=== PATIENT | male | born 1945 | race Caucasian/White ===

== ENCOUNTER 2017-08-07 08:52 | Inpatient (IN) | payer OTHER, MEDICARE ==
[~2017-08-07] VITALS: Ht 175.3 cm; Wt 79.9 kg
[2017-08-07] VITALS (8 sets, daily range): BP systolic 127–164; BP diastolic 57–84; PULSE 71–95; RESP 17–20; TEMP 97.6–98.2; O2SAT 94–100
[~2017-08-07 08:52] MED LIST: ASPI-183 PO; ISOS10TA3 PO; METF500T PO; METO25TA3 PO; MIRT30TA PO; NIAC500T18 PO; OMEP20TA93 PO; PRAZ5CAP PO; SIMV20TA PO
[2017-08-07] MEDS ORDERED: ATOR20TA15 PO (09:07)
[2017-08-07] MEDS ORDERED: CYCL5TAB PO (09:07)
[2017-08-07] MEDS ORDERED: ONDANSETRON HCL 4 MG/2 ML VIAL IV PUSH ONE ×2 (09:15→12:00)
[2017-08-07] MEDS ORDERED: SODIUM CHLOR 0.9% 1000 ML INJ 1,000 ML IV SCH (09:15)
[2017-08-07] MEDS ORDERED: HYDROmorphone HCL PF 2 MG/ML VIAL IV PUSH ONE ×2 (09:15→12:00)
--- NOTE | 2017-08-07 09:15 | PD ---
HPI Chief Complaint: Abdominal Pain Time Seen by Provider: 09:00 Travel History International Travel<30 days: No Contact w/Intl Traveler<30days: No Traveled to known affect area: No History of Present Illness HPI This 71-year-old male is complaining of abdominal pain. He says the pain started around 4:00 this morning. It is fairly persistent but it does get worse at times. There is been no vomiting but has had periods of nausea. He had surgery in 1999 for a perforated colon. He believes it might of been perforated due to diverticulitis. He had a colostomy done at the time and it has been reconnected. Since then he says he gets a bowel obstruction about every 2 years. The last time was in March 2016 he was admitted here and managed nonoperatively. He has done well since then. He had a small bowel movement about an hour ago. He says the pain is having now is similar to the pain is had before with bowel obstructions PFSH Past Medical History Arthritis: Yes Anxiety: Yes Depression: Yes Cancer: Yes (skin ) Cardiac Catheterization: Yes Cardiovascular Problems: Yes High Cholesterol: Yes Chest Pain: Yes Coronary Artery Disease: Yes Diabetes: Yes Patient Takes Glucophage: Yes Gastrointestinal Disorders: Yes (bowel perforation, colectomy, reversed colostomy) GERD: Yes Genitourinary: Yes (bph) Hypertension: Yes Insomnia: Yes Musculoskeletal: Yes Neurologic: Yes Psychiatric: Yes (ptsd) Reproductive: No Respiratory: No Myocardial Infarction: Yes Triglycerides - High: Yes ?: Not Past Surgical History Abdominal Surgery: Yes (colectomy/colostomy and rev) Appendectomy: Yes Coronary Stent: Yes Other Surgery: Yes Social History Alcohol Use: No Tobacco Use: Yes Substance Use: No Allergies-Medications (Allergen,Severity, Reaction): Coded Allergies: diatrizoate meglumine (Unverified Allergy, Severe, paralysis, 08/07/17) gadobenic acid (Unverified Allergy, Severe, paralysis, 08/07/17) gadodiamide (Unverified Allergy, Severe, paralysis, 08/07/17) gadoteridol (Unverified Allergy, Severe, paralysis, 08/07/17) iodixanol (Unverified Allergy, Severe, paralysis, 08/07/17) iohexol (Unverified Allergy, Severe, paralysis, 08/07/17) shellfish derived (Verified Allergy, Unknown, 08/07/17) Reported Meds & Prescriptions Reported Meds & Active Scripts Active Reported Flexeril (Cyclobenzaprine HCl) 5 Mg Tab 5 Mg PO BID Atorvastatin (Atorvastatin Calcium) 20 Mg Tab 20 Mg PO HS Mirtazapine 30 Mg Tab 30 Mg PO HS PRN Prazosin (Prazosin HCl) 5 Mg Cap 10 Mg PO HS Isosorbide Mononitrate 10 Mg Tab 30 Mg PO DAILY Take 2 doses 7 hours apart. Omeprazole 20 Mg Tab 20 Mg PO DAILY Metformin (Metformin HCl) 500 Mg Tab 500 Mg PO BIDPC With meals Metoprolol Tartrate 25 Mg Tab 25 Mg PO BID Review of Systems Except as stated in HPI: all other systems reviewed are Neg General / Constitutional: No: Fever, Chills Eyes: No: Diploplia, Blurred Vision HENT: No: Headaches, Vertigo Cardiovascular: No: Chest Pain or Discomfort, Palpitations Respiratory: No: Cough, Shortness of Breath Gastrointestinal: Positive: Nausea, Abdominal Pain Genitourinary: No: Frequency Musculoskeletal: No: Myalgias Skin: No Rash Neurologic: No: Weakness, Dizziness Endocrine: No: Heat Intolerance, Cold Intolerance Hematologic/Lymphatic: No: Easy Bruising Physical Exam Narrative GENERAL: Well-developed male SKIN: Focused skin assessment warm/dry. HEAD: Atraumatic. Normocephalic. EYES: Pupils equal and round. No scleral icterus. No injection or drainage. ENT: No nasal bleeding or discharge. Mucous membranes pink and moist. NECK: Trachea midline. No JVD. CARDIOVASCULAR: Regular rate and rhythm. No murmur appreciated. RESPIRATORY: No accessory muscle use. Clear to auscultation. Breath sounds equal bilaterally. GASTROINTESTINAL: Abdomen soft, mild distention, somewhat diffuse tenderness bowel sounds diminished. Hepatic and splenic margins not palpable. MUSCULOSKELETAL: No obvious deformities. No clubbing. No cyanosis. No edema. NEUROLOGICAL: Awake and alert. No obvious cranial nerve deficits. Motor grossly within normal limits. Normal speech. PSYCHIATRIC: Appropriate mood and affect; insight and judgment normal. Data Data Last Documented VS Vital Signs Date Time Temp Pulse Resp B/P (MAP) Pulse Ox O2 Delivery O2 Flow Rate FiO2 08/07/17 11:47 71 20 140/67 (91) 100 08/07/17 08:55 97.6 Orders Orders Complete Blood Count With Diff (08/07/17 09:08) Comprehensive Metabolic Panel (08/07/17 09:08) Prothrombin Time / Inr (Pt) (08/07/17 09:08) Act Partial Throm Time (Ptt) (08/07/17 09:08) Lipase (08/07/17 09:08) Urinalysis - C+S If Indicated (08/07/17 09:08) Sodium Chlor 0.9% 1000 Ml Inj (Ns 1000 M (08/07/17 09:15) Ondansetron Inj (Zofran Inj) (08/07/17 09:15) Hydromorphone Pf Inj (Dilaudid Pf Inj) (08/07/17 09:15) Ct Abd/Pel W/O Iv Contrast (08/07/17 09:40) Hydromorphone Pf Inj (Dilaudid Pf Inj) (08/07/17 12:00) Ondansetron Inj (Zofran Inj) (08/07/17 12:00) Place Ng Tube To Low Intermit (08/07/17 11:51) Ng Gastric Tube Insert/Monitor (08/07/17 11:51) Ns + Kcl 40 Meq Inj (Ns + Kcl 40 Meq Inj (08/07/17 12:00) Labs Laboratory Tests Test 08/07/17 09:20 White Blood Count 9.7 TH/MM3 Red Blood Count 4.62 MIL/MM3 Hemoglobin 13.9 GM/DL Hematocrit 40.8 % Mean Corpuscular Volume 88.2 FL Mean Corpuscular Hemoglobin 30.0 PG Mean Corpuscular Hemoglobin Concent 34.0 % Red Cell Distribution Width 13.6 % Platelet Count 181 TH/MM3 Mean Platelet Volume 8.4 FL Neutrophils (%) (Auto) 87.7 % Lymphocytes (%) (Auto) 8.6 % Monocytes (%) (Auto) 2.9 % Eosinophils (%) (Auto) 0.4 % Basophils (%) (Auto) 0.4 % Neutrophils # (Auto) 10.6 TH/MM3 Lymphocytes # (Auto) 1.0 TH/MM3 Monocytes # (Auto) 0.3 TH/MM3 Eosinophils # (Auto) 0.0 TH/MM3 Basophils # (Auto) 0.0 TH/MM3 CBC Comment AUTO DIFF Differential Comment AUTO DIFF CONFIRMED Platelet Estimate NORMAL Platelet Morphology Comment NORMAL Prothrombin Time 10.4 SEC Prothromb Time International Ratio 1.0 RATIO Activated Partial Thromboplast Time 25.9 SEC Blood Urea Nitrogen 16 MG/DL Creatinine 0.90 MG/DL Random Glucose 181 MG/DL Total Protein 7.2 GM/DL Albumin 3.8 GM/DL Calcium Level 9.2 MG/DL Alkaline Phosphatase 86 U/L Aspartate Amino Transf (AST/SGOT) 19 U/L Alanine Aminotransferase (ALT/SGPT) 17 U/L Total Bilirubin 0.5 MG/DL Sodium Level 139 MEQ/L Potassium Level 3.4 MEQ/L Chloride Level 103 MEQ/L Carbon Dioxide Level 28.4 MEQ/L Anion Gap 8 MEQ/L Estimat Glomerular Filtration Rate 83 ML/MIN Lipase 108 U/L [facility] Medical Decision Making Medical Screen Exam Complete: Yes Emergency Medical Condition: Yes Medical Record Reviewed: Yes Differential Diagnosis Differential diagnosis includes small bowel obstruction, nonspecific abdominal pain, diverticulitis Narrative Course Skin suggests partial closed loop types small bowel obstruction it is noted that the scan is similar to previous scans. Case discussed with Dr. Red. The patient will be admitted to medical service Diagnosis Primary Impression: Small bowel obstruction due to adhesions Benjamín Rodriguez MD Aug 07, 2017 09:15
[2017-08-07 09:41] LABS: AUTOMATED NEUTROPHIL # 10.6 TH/MM3 (1.8-7.7); BASOPHIL % 0.4 % (0.0-2.0); EOSINOPHIL % 0.4 % (0.0-4.0); HEMATOCRIT 40.8 % (39.0-51.0); HEMOGLOBIN 13.9 GM/DL (13.0-17.0); LYMPH % 8.6 % (9.0-44.0); MEAN CELL VOLUME 88.2 FL (80.0-100.0); MEAN PLATELET VOLUME 8.4 FL (7.0-11.0); MONO % 2.9 % (0.0-8.0); MONOCYTE # 0.3 TH/MM3 (0-0.9); NEUT % 87.7 % (16.0-70.0); RED BLOOD COUNT 4.62 MIL/MM3 (4.50-5.90); RED CELL DISTRIBUTION WIDTH 13.6 % (11.6-17.2)
[2017-08-07 09:44] LABS: PROTHROMBIN TIME - PATIENT 10.4 SEC (9.8-11.6)
[2017-08-07 09:56] LABS: BICARBONATE 28.4 MEQ/L (21.0-32.0); CALCIUM 9.2 MG/DL (8.5-10.1)
[2017-08-07 09:57] LABS: BLOOD UREA NITROGEN 16 MG/DL (7-18)
[2017-08-07 09:58] LABS: CHLORIDE 103 MEQ/L (98-107); SODIUM (NA) 139 MEQ/L (136-145)
[2017-08-07 09:59] LABS: ALBUMIN 3.8 GM/DL (3.4-5.0); GLUCOSE,RANDOM 181 MG/DL (74-106)
[2017-08-07 10:01] LABS: ALT (GPT) 17 U/L (12-78); AST (GOT) 19 U/L (15-37); GLOMERULAR FILTRATION RATE 83 ML/MIN (>89)
[2017-08-07 10:02] LABS: TOTAL PROTEIN 7.2 GM/DL (6.4-8.2)
[2017-08-07 10:04] LABS: ALKALINE PHOSPHATASE 86 U/L (45-117)
[2017-08-07 10:06] LABS: TOTAL BILIRUBIN ADULT 0.5 MG/DL (0.2-1.0)
[2017-08-07 10:39] LABS: WHITE BLOOD COUNT 9.7 TH/MM3 (4.0-11.0)
[2017-08-07 10:41] LABS: PLATELET COUNT 181 TH/MM3 (150-450)
--- NOTE | 2017-08-07 11:43 | RADRPT ---
EXAM DATE/TIME: 08/07/2017 11:05 [facility] COMPARISON: CT ABDOMEN & PELVIS W/O CONTRAST, April 12, 2016, 1:19. INDICATIONS : Abdomen pain,history of bowel obstruction ORAL CONTRAST: No oral contrast ingested. RADIATION DOSE: 6.91 CTDIvol (mGy) MEDICAL HISTORY : Cardiovascular disease. Arthritis. Hypertension.Diabetes,diverticulitis SURGICAL HISTORY : Coronary artery stent. Appendectomy.Colon resection. ENCOUNTER: Initial ACUITY: 1 day PAIN SCALE: 2/10 LOCATION: Abdomen TECHNIQUE: Volumetric scanning of the abdomen and pelvis was performed. Using automated exposure control and ad justment of the mA and/or kV according to patient size, radiation dose was kept as low as reasonably achievable to obtain optimal diagnostic quality images. DICOM format image data is available electro nically for review and comparison. FINDINGS: LOWER LUNGS: Mild atelectasis in the posterior lung bases. LIVER: Homogeneous density without lesion. There is no dilation of the biliary tree. No calcified gallston es. SPLEEN: Normal size without lesion. PANCREAS: Within normal limits. KIDNEYS: Normal in size and shape. There is no mass, stone, or hydronephrosis. ADRENAL GLANDS: Within normal limits. VASCULAR: There is no aortic aneurysm. BOWEL/MESENTERY: Previous colon surgery with anastomosis in the sigmoid region, configuration unchanged. Some residual diverticula. There are mildly-moderately dilated fluid-filled small bowel loops in the central and l eft abdomen. There does appear to be retraction of the mesentery toward a focus in the central abdome n which may be a site of adhesion. The appearance suggests at least a partial closed-loop type obstru ctive process, however the appearance is fairly similar to the prior scan. The distal small bowel and colon are decompressed. ABDOMINAL WALL: Stable changes post previous midline incision with small hernia defects. RETROPERITONEUM: There is no lymphadenopathy. BLADDER: No wall thickening or mass. REPRODUCTIVE: Central prostatic calcification. No evidence of pelvic mass or free fluid INGUINAL: There is no lymphadenopathy or hernia. MUSCULOSKELETAL: Within normal limits for patient age. CONCLUSION: Scan appearance suggests at least a partial closed-loop type small bowel obstruction likely related t o adhesions. See above discussion. Dorian Phan MD on August 07, 2017 at 11:35 Board Certified Radiologist. This report was verified electronically.
[2017-08-07] MEDS: NS + KCL 40 MEQ INJ 1,000 ML IV SCH ×2 (12:27→21:07)
[2017-08-07] MEDS ORDERED: NALOXONE HCL 0.4 MG/ML AMP IV PUSH PRN (12:30)
[2017-08-07] MEDS: SODIUM CHLOR 0.9% 1000 ML INJ 1,000 ML IV SCH ×2 (14:53→21:07)
[2017-08-07] MEDS: KETOROLAC TROMETHAMINE 60 MG/2 ML (IM) VIAL IM PRN ×2 (14:53→21:08)
[2017-08-07] MEDS ORDERED: DEXTROSE 50% IN WATER 50 ML VIAL(D50) IV PUSH PRN (16:15)
[2017-08-07] MEDS ORDERED: GLUCAGON 1 MG/ML VIAL OTHER PRN (16:15)
--- NOTE | 2017-08-07 16:21 | HHI.HP ---
[facility] Service [facility] Primary Care Physician [facility] Admission Diagnosis SMALL BOWEL OBSTRUCTION Diagnoses: Chief Complaint: Abdominal pain Travel History International Travel<30 Days: No Contact w/Intl Traveler <30 Da: No Traveled to Known Affected Are: No History of Present Illness This patient is a very pleasant 71-year-old gentleman with a history of multiple intestinal surgeries who came to the hospital and body of acute onset of severe abdominal pain which was previously experienced during a diagnosis of bowel obstruction. He has some nausea with no kendall vomiting. He says for the last 18 years he has had intermittent abdominal discomfort. 18 years ago he had perforated intestinal and that with colectomy and colostomy which has since been reversed. He reports no change in bowel habits or no change in diet prior to the acute change in pain. Pain has been relieved with IV of the abdomen which does show partial bowel obstruction Review of Systems Endocrine: DENIES: Heat/cold intolerance, Polydipsia, Polyuria, Polyphagia Eyes: DENIES: Blurred vision, Diplopia, Eye inflammation, Eye pain, Vision loss , Photosensitivity, Double Vision Ears, nose, mouth, throat: DENIES: Tinnitus, Hearing loss, Vertigo, Nasal discharge, Oral lesions, Throat pain, Hoarseness, Ear Pain, Running Nose, Epistaxis, Sinus Pain, Toothache, Odynophagia Respiratory: DENIES: Apneas, Cough, Snoring, Wheezing, Hemoptysis, Sputum production, Shortness of breath Cardiovascular: DENIES: Chest pain, Palpitations, Syncope, Dyspnea on Exertion , PND, Lower Extremity Edema, Orthopnea, Claudication Gastrointestinal: COMPLAINS OF: Abdominal pain, Nausea, Vomiting, DENIES: Black stools, Bloody stools, Constipation, Diarrhea, Difficulty Swallowing, Anorexia Genitourinary: DENIES: Sexual dysfunction, Urinary frequency, Urinary incontinence, Urgency, Hematuria, Dysuria, Nocturia, Penile Discharge, Testicular Pain, Testicular Swelling Musculoskeletal: DENIES: Joint pain, Muscle aches, Stiffness, Joint Swelling, Back pain, Neck pain Integumentary: DENIES: Abnormal pigmentation, Nail changes, Pruritus, Rash Hematologic/lymphatic: DENIES: Bruising, Lymphadenopathy Immunologic/allergic: DENIES: Eczema, Urticaria Neurologic: DENIES: Abnormal gait, Headache, Localized weakness, Paresthesias, Seizures, Speech Problems, Tremor, Poor Balance Psychiatric: DENIES: Anxiety, Confusion, Mood changes, Depression, Hallucinations, Agitation, Suicidal Ideation, Homicidal Ideation, Delusions Except as stated in HPI: all other systems reviewed are Neg Past Family Social History Past Medical History Diabetes Hypertension Coronary artery disease Hyperlipidemia Chronic pain BPH Past Surgical History Appendectomy Cholecystectomy Cardiac stent 2 Colectomy with reversal of colostomy Reported Medications Reviewed in the EMR Allergies: Coded Allergies: diatrizoate meglumine (Unverified Allergy, Severe, paralysis, 08/07/17) gadobenic acid (Unverified Allergy, Severe, paralysis, 08/07/17) gadodiamide (Unverified Allergy, Severe, paralysis, 08/07/17) gadoteridol (Unverified Allergy, Severe, paralysis, 08/07/17) iodixanol (Unverified Allergy, Severe, paralysis, 08/07/17) iohexol (Unverified Allergy, Severe, paralysis, 08/07/17) shellfish derived (Verified Allergy, Unknown, 08/07/17) Active Ordered Medications Reviewed in the EMR Family History Father and mother both in her 70s from unknown, Social History Patient is quite transient and drives his car around visiting friends and family He makes his home in [place] however He smokes a half pack a day for the last 50 years [employer] Denies alcohol Physical Exam Vital Signs Vital Signs Date Time Temp Pulse Resp B/P (MAP) Pulse Ox O2 Delivery O2 Flow Rate FiO2 08/07/17 15:53 18 08/07/17 15:00 98.2 80 20 144/74 (97) 100 08/07/17 14:06 08/07/17 13:22 84 20 131/57 (81) 98 Nasal Cannula 2.00 08/07/17 12:29 90 20 131/74 (93) 98 08/07/17 11:47 71 20 140/67 (91) 100 08/07/17 10:27 85 20 127/66 (86) 96 08/07/17 09:21 82 20 143/67 (92) 94 08/07/17 08:55 97.6 95 18 164/84 (110) 97 Physical Exam GENERAL: This is a well-nourished, well-developed patient, feels ill with NG tube with quite a large amount of output SKIN: No rashes, ecchymoses or lesions. Cool and dry. HEAD: Atraumatic. Normocephalic. No temporal or scalp tenderness. EYES: Pupils equal round and reactive. Extraocular motions intact. No scleral icterus. No injection or drainage. ENT: Nose without bleeding, purulent drainage or septal hematoma. Throat without erythema, tonsillar hypertrophy or exudate. Uvula midline. Airway patent. NECK: Trachea midline. No JVD or lymphadenopathy. Supple, nontender, no meningeal signs. CARDIOVASCULAR: Regular rate and rhythm without murmurs, gallops, or rubs. RESPIRATORY: Clear to auscultation. Breath sounds equal bilaterally. No wheezes , rales, or rhonchi. GASTROINTESTINAL: Abdomen is distended, hypoactive but nontender MUSCULOSKELETAL: Extremities without clubbing, cyanosis, or edema. No joint tenderness, effusion, or edema noted. No calf tenderness. Negative Homans sign bilaterally. NEUROLOGICAL: Awake and alert. Cranial nerves II through XII intact. Motor and sensory grossly within normal limits. Five out of 5 muscle strength in all muscle groups. Normal speech. Laboratory Laboratory Tests Test 08/07/17 09:20 White Blood Count 9.7 Red Blood Count 4.62 Hemoglobin 13.9 Hematocrit 40.8 Mean Corpuscular Volume 88.2 Mean Corpuscular Hemoglobin 30.0 Mean Corpuscular Hemoglobin Concent 34.0 Red Cell Distribution Width 13.6 Platelet Count 181 Mean Platelet Volume 8.4 Neutrophils (%) (Auto) 87.7 Lymphocytes (%) (Auto) 8.6 Monocytes (%) (Auto) 2.9 Eosinophils (%) (Auto) 0.4 Basophils (%) (Auto) 0.4 Neutrophils # (Auto) 10.6 Lymphocytes # (Auto) 1.0 Monocytes # (Auto) 0.3 Eosinophils # (Auto) 0.0 Basophils # (Auto) 0.0 CBC Comment AUTO DIFF Differential Comment AUTO DIFF CONFIRMED Platelet Estimate NORMAL Platelet Morphology Comment NORMAL Prothrombin Time 10.4 Prothromb Time International Ratio 1.0 Activated Partial Thromboplast Time 25.9 Blood Urea Nitrogen 16 Creatinine 0.90 Random Glucose 181 Total Protein 7.2 Albumin 3.8 Calcium Level 9.2 Alkaline Phosphatase 86 Aspartate Amino Transf (AST/SGOT) 19 Alanine Aminotransferase (ALT/SGPT) 17 Total Bilirubin 0.5 Sodium Level 139 Potassium Level 3.4 Chloride Level 103 Carbon Dioxide Level 28.4 Anion Gap 8 Estimat Glomerular Filtration Rate 83 Lipase 108 Result Diagram: 08/07/1791908/07/17919 Imaging Last Impressions Abdomen/Pelvis CT 08/07/1740 Signed Impressions: Service Date/Time: Monday, August 07, 2017 11:05 - CONCLUSION: Scan appearance suggests at least a partial closed-loop type small bowel obstruction likely related to adhesions. See above discussion. MD Lalo Araujo VTE Risk Assessment Caprini VTE Risk Assessment: Mod/High Risk (score >= 2) VTE Pharm Contraindication: Documented Caprini Risk Assessment Model Point Value = 1 Point Value = 2 Point Value = 3 Point Value = 5 Age 41-60 Minor surgery BMI > 25 kg/m2 Swollen legs Varicose veins or History of unexplained or recurrent spontaneous Oral contraceptives or hormone replacement Sepsis (< 1 month) Serious lung disease, including pneumonia (< 1 month) Abnormal pulmonary function Acute myocardial infarction Congestive heart failure (< 1 month) History of inflammatory bowel disease Medical patient at bed rest Age 61-74 Arthroscopic surgery Major open surgery (> 45 min) Laparoscopic surgery (> 45 min) Malignancy Confined to bed (> 72 hours) Immobilizing plaster cast Central venous access Age >= 75 History of VTE Family history of VTE Factor V Leiden Prothrombin [id number] Lupus anticoagulant Anticardiolipin antibodies Elevated serum homocysteine Heparin-induced thrombocytopenia Other congenital or acquired thrombophilia Stroke (< 1 month) Elective arthroplasty Hip, pelvis, or leg fracture Acute spinal cord injury (< 1 month) Prophylaxis Regimen Total Risk Factor Score Risk Level Prophylaxis Regimen 0-1 Low Early ambulation 2 Moderate Order ONE of the following: *Sequential Compression Device (SCD) *Heparin 5000 units SQ BID 3-4 Higher Order ONE of the following medications: *Heparin 5000 units SQ TID *Enoxaparin/Lovenox 40 mg SQ daily (WT < 150 kg, CrCl > 30 mL/min) *Enoxaparin/Lovenox 30 mg SQ daily (WT < 150 kg, CrCl > 10-29 mL/min) *Enoxaparin/Lovenox 30 mg SQ BID (WT < 150 kg, CrCl > 30 mL/min) AND/OR *Sequential Compression Device (SCD) 5 or more Highest Order ONE of the following medications: *Heparin 5000 units SQ TID (Preferred with Epidurals) *Enoxaparin/Lovenox 40 mg SQ daily (WT < 150 kg, CrCl > 30 mL/min) *Enoxaparin/Lovenox 30 mg SQ daily (WT < 150 kg, CrCl > 10-29 mL/min) *Enoxaparin/Lovenox 30 mg SQ BID (WT < 150 kg, CrCl > 30 mL/min) AND *Sequential Compression Device (SCD) Assessment and Plan Problem List: (1) SBO (small bowel obstruction) ICD Code: K56.609 - Unspecified intestinal obstruction, unspecified as to partial versus complete obstruction Plan: Patient with recurrent small bowel obstruction over the last 8 years Continue with IV fluids, bowel rest/n.p.o. status Pain medication and antiemetics as needed General surgery consult pending (2) DM2 (diabetes mellitus, type 2) ICD Code: E11.9 - Type 2 diabetes mellitus without complications Plan: Patient currently n.p.o. Continue IV hydration and follow as needed for hypoglycemia (3) CAD (coronary artery disease) ICD Code: I25.10 - Atherosclerotic heart disease of [place] coronary artery without angina pectoris Plan: Stable at this time, patient will resume home medications when bowel improves enough to tolerate diet Code Status full code Discussed Condition With patient, [facility]ENCHO Physician Certification 2 Midnight Certification Type: Admission for Inpatient Services Order for Inpatient Services The services are ordered in accordance with Medicare regulations or non- Medicare payer requirements, as applicable. In the case of services not specified as inpatient-only, they are appropriately provided as inpatient services in accordance with the 2-midnight benchmark. Estimated LOS (days): 3 3 days is the estimated time the patient will need to remain in the hospital, assuming treatment plan goals are met and no additional complications. Post-Hospital Plan: Ann Simeon MD Aug 07, 2017 16:21
[2017-08-07] MEDS: INSULIN ASPART SUPPLEMENTAL SCALE SQ SCH ×2 (17:00→21:00)
[2017-08-07] MEDS: PANTOPRAZOLE SODIUM 40 MG VIAL IV PUSH SCH (17:06)
[2017-08-07] MEDS: SODIUM CHLORIDE 0.9% FLUSH 10 ML FLUSH IV FLUSH SCH (21:06)
[2017-08-07] MEDS: HEPARIN SODIUM - SQ 10,000 UNITS/ML VIAL SQ SCH (21:09)
[2017-08-08] VITALS (7 sets, daily range): BP systolic 138–163; BP diastolic 67–81; PULSE 69–86; RESP 16–18; TEMP 96.6–98.6; O2SAT 90–99
[2017-08-08] MEDS: SODIUM CHLOR 0.9% 1000 ML INJ 1,000 ML IV SCH ×2 (01:05→19:09)
[2017-08-08] MEDS: SODIUM CHLORIDE 0.9% FLUSH 10 ML FLUSH IV FLUSH PRN ×3 (01:05→06:00)
[2017-08-08] MEDS: MORPHINE SULFATE 2 MG/ML INJ IV PUSH PRN ×5 (01:37→18:58)
[2017-08-08] MEDS: KETOROLAC TROMETHAMINE 60 MG/2 ML (IM) VIAL IM PRN (04:08)
[2017-08-08] MEDS: ONDANSETRON HCL 4 MG/2 ML VIAL IVP PRN (04:50)
[2017-08-08] MEDS: HEPARIN SODIUM - SQ 10,000 UNITS/ML VIAL SQ SCH ×3 (05:59→22:27)
[2017-08-08] MEDS: PANTOPRAZOLE SODIUM 40 MG VIAL IV PUSH SCH ×2 (05:59→18:57)
[2017-08-08 06:53] LABS: AUTOMATED NEUTROPHIL # 10.4 TH/MM3 (1.8-7.7); BASOPHIL % 0.2 % (0.0-2.0); EOSINOPHIL # 0.1 TH/MM3 (0-0.4); EOSINOPHIL % 0.4 % (0.0-4.0); HEMATOCRIT 40.8 % (39.0-51.0); HEMOGLOBIN 13.9 GM/DL (13.0-17.0); LYMPH % 9.7 % (9.0-44.0); LYMPHOCYTE # 1.2 TH/MM3 (1.0-4.8); MEAN CELL VOLUME 89.1 FL (80.0-100.0); MEAN CORPUSCULAR HEMOGLOBIN 30.5 PG (27.0-34.0); MEAN CORPUSCULAR HGB CONC 34.2 % (32.0-36.0); MONO % 6.7 % (0.0-8.0); MONOCYTE # 0.8 TH/MM3 (0-0.9); PLATELET COUNT 116 TH/MM3 (150-450); RED BLOOD COUNT 4.58 MIL/MM3 (4.50-5.90); RED CELL DISTRIBUTION WIDTH 13.8 % (11.6-17.2); WHITE BLOOD COUNT 12.5 TH/MM3 (4.0-11.0)
[2017-08-08 07:08] LABS: BICARBONATE 29.2 MEQ/L (21.0-32.0); CALCIUM 8.8 MG/DL (8.5-10.1)
[2017-08-08 07:12] LABS: CREATININE 0.82 MG/DL (0.60-1.30)
[2017-08-08] MEDS: INSULIN ASPART SUPPLEMENTAL SCALE SQ SCH ×4 (08:00→21:00)
[2017-08-08] MEDS: NS + KCL 40 MEQ INJ 1,000 ML IV SCH ×2 (09:19→18:00)
[2017-08-08] MEDS: SODIUM CHLORIDE 0.9% FLUSH 10 ML FLUSH IV FLUSH SCH ×2 (09:19→18:57)
--- NOTE | 2017-08-08 09:51 | RADRPT ---
EXAM DATE/TIME: 08/08/2017 09:27 [facility] COMPARISON: ABDOMEN FLAT & UPRIGHT, April 12, 2016, 5:08. INDICATIONS : Abdomen pain, obstruction. MEDICAL HISTORY : Cardiovascular disease. Arthritis. Hypertension.Diabetes,diverticulitis SURGICAL HISTORY : Coronary artery stent. Appendectomy.Colon resection. ENCOUNTER: Subsequent ACUITY: 2 days PAIN SCORE: 8/10 LOCATION: Bilateral abdomen FINDINGS: Supine view of the abdomen was performed. Air-filled and slightly dilated small bowel loops in the le ft abdomen. Colon appears to be decompressed. No obvious pneumoperitoneum on the limited images submi tted. Degenerative spurring of the visualized portions of the spine. No acute osseous injury. CONCLUSION: Plain film findings concerning for partial small bowel obstruction with some air distention of s mall bowel loops in the left abdomen. Jayjay Thrasher MD on August 08, 2017 at 9:47 Board Certified Radiologist. This report was verified electronically.
[2017-08-08] MEDS ORDERED: LORazepam 2 MG/ML VIAL IV PUSH ONE (11:30)
--- NOTE | 2017-08-08 11:34 | HHI.PR ---
Subjective Remarks Patient seen and evaluated today in follow-up for abdominal pain secondary to small bowel obstruction. Complaining of increased pain although he has had some flatus and some belching. Case discussed with general surgery 600 mL out an NG tube Objective Vitals Vital Signs Date Time Temp Pulse Resp B/P (MAP) Pulse Ox O2 Delivery O2 Flow Rate FiO2 08/08/17 09:33 18 08/08/17 08:00 97.8 73 18 144/67 (92) 99 08/08/17 00:00 97.7 69 16 138/81 (100) 96 08/07/17 20:00 97.6 72 17 149/67 (94) 99 08/07/17 15:53 18 08/07/17 15:00 98.2 80 20 144/74 (97) 100 08/07/17 14:06 08/07/17 13:22 84 20 131/57 (81) 98 Nasal Cannula 2.00 08/07/17 12:29 90 20 131/74 (93) 98 08/07/17 11:47 71 20 140/67 (91) 100 I/O 08/07/17 08/07/17 08/07/17 08/08/17 08/08/17 08/08/17 07:00 15:00 23:00 07:00 15:00 23:00 Intake Total 1492 ml Output Total 350 ml 800 ml Balance -350 ml 692 ml Intake IV Total 1492 ml Output Urine Total 350 ml 700 ml Gastric Drainage Total 100 ml # Voids 1 Result Diagram: 08/08/17 0615 08/08/17 0615 Imaging Last Impressions Abdomen X-Ray 08/08/17 0000 Signed Impressions: Service Date/Time: Tuesday, August 08, 2017 09:27 - CONCLUSION: Plain film findings concerning for partial small bowel obstruction with some air distention of small bowel loops in the left abdomen. Jayjay Thrasher MD Abdomen/Pelvis CT 08/07/17 0940 Signed Impressions: Service Date/Time: Monday, August 07, 2017 11:05 - CONCLUSION: Scan appearance suggests at least a partial closed-loop type small bowel obstruction likely related to adhesions. See above discussion. Dorian Phan MD Objective Remarks GENERAL: This is a well-nourished, well-developed patient, NG tube, complaining of abdominal discomfort CARDIOVASCULAR: Regular rate and rhythm without murmurs, gallops, or rubs. RESPIRATORY: Clear to auscultation. Breath sounds equal bilaterally. No wheezes , rales, or rhonchi. GASTROINTESTINAL: Abdomen soft, tender and distended. Hypoactive bowel sounds MUSCULOSKELETAL: Extremities without clubbing, cyanosis, or edema. NEURO: Alert & Oriented x4 to person, place, time, situation. Moves all ext x4 A/P Problem List: (1) SBO (small bowel obstruction) ICD Code: K56.609 - Unspecified intestinal obstruction, unspecified as to partial versus complete obstruction Plan: Patient with recurrent small bowel obstruction over the last 8 years NGT Continue with IV fluids, bowel rest/n.p.o. status Pain medication and antiemetics as needed General surgery consult appreciated (2) DM2 (diabetes mellitus, type 2) ICD Code: E11.9 - Type 2 diabetes mellitus without complications Plan: Patient currently n.p.o. Continue IV hydration and follow as needed for hypoglycemia (3) CAD (coronary artery disease) ICD Code: I25.10 - Atherosclerotic heart disease of [place] coronary artery without angina pectoris Plan: Stable at this time, patient will resume home medications when bowel improves enough to tolerate diet Discharge Planning may need surgical intervention Ann Garcia MD Aug 08, 2017 11:34
[2017-08-08] MEDS ORDERED: KETOROLAC TROMETHAMINE 60 MG/2 ML (IM) VIAL IM PRN (12:00)
--- NOTE | 2017-08-08 16:11 | PD.CONS ---
cc: Marcio Red MD [facility] Service General Surgery Consult Requested By Dr. Garcia Reason for Consult Small bowel obstruction Primary Care Physician [facility] History of Present Illness This is a 71 year old male with a past medical history of diabetes mellitus, hypertension, CAD, dyslipidemia, chronic pain and BPH. He presented to the ED yesterday with complaints of acute onset of abdominal pain with associated nausea and no vomiting. He reports his last bowel movement was yesterday prior to arrival to ED which was normal. He denies any recent known sick contacts. He does travel frequently. He has had similar episodes similar to this one that have been treated nonoperatively. A CT abdomen/pelvis was obtained which shows a partial closed loop small bowel obstruction secondary to adhesions. He does have a mildly elevated WBC. An NGT was placed with low output. A General Surgery consultation has been requested. Review of Systems Constitutional: DENIES: Fatigue, Weight loss Endocrine: DENIES: Polydipsia, Polyuria, Polyphagia Eyes: DENIES: Blurred vision, Diplopia Ears, nose, mouth, throat: DENIES: Hearing loss Respiratory: DENIES: Apneas Cardiovascular: DENIES: Chest pain, Dyspnea on Exertion Gastrointestinal: COMPLAINS OF: Abdominal pain, Nausea, DENIES: Vomiting Genitourinary: DENIES: Urgency Musculoskeletal: DENIES: Joint pain Integumentary: DENIES: Abnormal pigmentation Hematologic/lymphatic: DENIES: Bruising Immunologic/allergic: DENIES: Eczema Neurologic: DENIES: Abnormal gait, Localized weakness Psychiatric: DENIES: Confusion, Mood changes, Depression Past Family Social History Past Medical History Diabetes mellitus Hypertension CAD Dyslipidemia Chronic pain pain BPH Past Surgical History Perforated intestines with colostomy about 18 years ago; colostomy has been reversed Open appendectomy Cardiac stent placement x 2 Reported Medications Flexeril Atorvastatin Isosorbide Prazosin Metoprolol Mirtazapine Omeprazole Metformin Allergies: Coded Allergies: diatrizoate meglumine (Unverified Allergy, Severe, paralysis, 08/07/17) gadobenic acid (Unverified Allergy, Severe, paralysis, 08/07/17) gadodiamide (Unverified Allergy, Severe, paralysis, 08/07/17) gadoteridol (Unverified Allergy, Severe, paralysis, 08/07/17) iodixanol (Unverified Allergy, Severe, paralysis, 08/07/17) iohexol (Unverified Allergy, Severe, paralysis, 08/07/17) shellfish derived (Verified Allergy, Unknown, 08/07/17) Active Ordered Medications Current Medications Medications (Trade) Dose Ordered Sig/Larry Route Start Time Stop Time Status Last Admin Potassium Chloride/Sodium Chloride 1,000 ml @ 100 mls/hr Q10H IV 08/07/17 12:00 08/08/17 09:19 Sodium Chloride 1,000 ml @ 100 mls/hr Q10H IV 08/07/17 12:26 08/08/17 01:05 (NS Flush) 2 ml UNSCH PRN IV FLUSH 08/07/17 12:30 08/08/17 06:00 (NS Flush) 2 ml BID IV FLUSH 08/07/17 21:00 08/08/17 09:19 (Zofran Inj) 4 mg Q6H PRN IVP 08/07/17 12:30 08/08/17 04:50 (Narcan Inj) 0.4 mg UNSCH PRN IV PUSH 08/07/17 12:30 (Heparin Inj) 5,000 units Q8HR SQ 08/07/17 22:00 08/08/17 05:59 (Protonix Inj) 40 mg Q12H IV PUSH 08/07/17 18:00 08/08/17 05:59 (D50w (Vial) Inj) 50 ml UNSCH PRN IV PUSH 08/07/17 16:15 (Glucagon Inj) 1 mg UNSCH PRN OTHER 08/07/17 16:15 (NovoLOG SUPPLEMENTAL SCALE) 1 ACHS SLIDING SCALE SQ 08/07/17 17:00 (Morphine Inj) 2 mg Q3H PRN IV PUSH 08/08/17 01:30 08/08/17 12:00 (Toradol Inj) 15 mg Q6H PRN IM 08/08/17 12:00 08/13/17 11:59 Family History Noncontributory Social History + tobacco use--- 2 cartons a month Denies ETOH use Denies illicit drug use Travels a lot. Physical Exam Vital Signs Vital Signs Date Time Temp Pulse Resp B/P (MAP) Pulse Ox O2 Delivery O2 Flow Rate FiO2 08/08/17 12:00 96.6 78 18 154/72 (99) 93 08/08/17 10:00 96 21 08/08/17 09:33 18 08/08/17 08:00 97.8 73 18 144/67 (92) 99 08/08/17 07:30 98 Nasal Cannula 2.00 08/08/17 00:00 97.7 69 16 138/81 (100) 96 08/07/17 20:00 97.6 72 17 149/67 (94) 99 Physical Exam GENERAL: Pleasant 71 year old male resting in bed in no acute distress. SKIN: Warm and dry. HEAD: Atraumatic. Normocephalic. EYES: Pupils equal and round. No scleral icterus. No injection or drainage. ENT: No nasal bleeding or discharge. Mucous membranes pink and moist. NECK: Trachea midline. CARDIOVASCULAR: Regular rate and rhythm. RESPIRATORY: No accessory muscle use. Clear to auscultation. Breath sounds equal bilaterally. GASTROINTESTINAL: Abdomen distended; tender throughout to palpation. NGT to LIWS with minimal output. MUSCULOSKELETAL: Extremities without clubbing, cyanosis, or edema. No obvious deformities. NEUROLOGICAL: Awake and alert. No obvious cranial nerve deficits. Motor grossly within normal limits. Five out of 5 muscle strength in the arms and legs. Normal speech. PSYCHIATRIC: Appropriate mood and affect; insight and judgment normal. Laboratory Laboratory Tests Test 08/08/17 06:15 White Blood Count 12.5 Red Blood Count 4.58 Hemoglobin 13.9 Hematocrit 40.8 Mean Corpuscular Volume 89.1 Mean Corpuscular Hemoglobin 30.5 Mean Corpuscular Hemoglobin Concent 34.2 Red Cell Distribution Width 13.8 Platelet Count 116 Mean Platelet Volume 9.0 Neutrophils (%) (Auto) 83.0 Lymphocytes (%) (Auto) 9.7 Monocytes (%) (Auto) 6.7 Eosinophils (%) (Auto) 0.4 Basophils (%) (Auto) 0.2 Neutrophils # (Auto) 10.4 Lymphocytes # (Auto) 1.2 Monocytes # (Auto) 0.8 Eosinophils # (Auto) 0.1 Basophils # (Auto) 0.0 CBC Comment DIFF FINAL Differential Comment Blood Urea Nitrogen 22 Creatinine 0.82 Random Glucose 138 Calcium Level 8.8 Sodium Level 142 Potassium Level 3.7 Chloride Level 106 Carbon Dioxide Level 29.2 Anion Gap 7 Estimat Glomerular Filtration Rate 93 Result Diagram: 08/08/17 0615 08/08/17 0615 Imaging Last 48 hours Impressions Abdomen X-Ray 08/08/17 0000 Signed Impressions: Service Date/Time: Tuesday, August 08, 2017 09:27 - CONCLUSION: Plain film findings concerning for partial small bowel obstruction with some air distention of small bowel loops in the left abdomen. Jayjay Thrasher MD Abdomen/Pelvis CT 08/07/17 0940 Signed Impressions: Service Date/Time: Monday, August 07, 2017 11:05 - CONCLUSION: Scan appearance suggests at least a partial closed-loop type small bowel obstruction likely related to adhesions. See above discussion. Dorian Phan MD Assessment and Plan Assessment and Plan 71 year old male with abdominal pain; SBO -Repeat KUB -Will do SBFT tomorrow -NGT to LIWS; okay for a few ice chips -IVF -Pain control -Will attempt non operative management -If needs operation will need Cardiac clearance and operation will need to be done at [facility] -Thank you for this consult; We will continue follow Discussed Condition With Dr. Teofilo Burdick Attending Statement The exam, history, and the medical decision-making described in the above note were completed with the assistance of the mid-level provider. I reviewed and agree with the findings presented. I attest that I had a [id number] encounter with the patient on the same day, and personally performed and documented my assessment and findings in the medical record. patient with adhesive SBO, stable no signs of bowel distress abdomen soft, no peritonitis passing some flatus today will follow Yvrose Zaragoza/First Brigida ESTRELLA Aug 08, 2017 16:11 Marcio Red MD Aug 09, 2017 10:00
[2017-08-09] VITALS: BP 148/78; PULSE 84; RESP 18; TEMP 96.9; O2SAT 98
[2017-08-09] MEDS: MORPHINE SULFATE 2 MG/ML INJ IV PUSH PRN ×6 (02:42→22:38)
[2017-08-09] MEDS: NS + KCL 40 MEQ INJ 1,000 ML IV SCH ×3 (04:00→22:30)
[2017-08-09] MEDS: SODIUM CHLOR 0.9% 1000 ML INJ 1,000 ML IV SCH (04:21)
[2017-08-09] MEDS: HEPARIN SODIUM - SQ 10,000 UNITS/ML VIAL SQ SCH ×3 (05:22→22:27)
[2017-08-09] MEDS: PANTOPRAZOLE SODIUM 40 MG VIAL IV PUSH SCH ×2 (05:22→17:26)
[2017-08-09 07:50] VITALS: BP 171/74; PULSE 73; RESP 20; TEMP 97.1; O2SAT 97
[2017-08-09] MEDS: INSULIN ASPART SUPPLEMENTAL SCALE SQ SCH ×4 (08:00→21:00)
[2017-08-09] MEDS ORDERED: DIATRIZOATE MEGLUM/DIATRIZOATE SOD 120 ML BTL (for RAD DIAG) PO ONE (08:55)
[2017-08-09] MEDS: SODIUM CHLORIDE 0.9% FLUSH 10 ML FLUSH IV FLUSH SCH ×2 (09:00→21:00)
--- NOTE | 2017-08-09 11:30 | HHI.PR ---
cc: Main Jimenez MD Subjective Subjective Notes Getting ready to go down to Radiology Gagging on NGT Objective Vitals/I&O Vital Signs Date Time Temp Pulse Resp B/P (MAP) Pulse Ox O2 Delivery O2 Flow Rate FiO2 08/09/17 08:39 18 08/09/17 07:50 97.1 73 171/74 (106) 97 08/08/17 10:00 21 08/08/17 07:30 Nasal Cannula 2.00 Radiology Last 48 hours Impressions Abdomen X-Ray 08/08/17 0000 Signed Impressions: Service Date/Time: Tuesday, August 08, 2017 09:27 - CONCLUSION: Plain film findings concerning for partial small bowel obstruction with some air distention of small bowel loops in the left abdomen. Jayjay Thrasher MD Abdomen/Pelvis CT 08/07/17 0940 Signed Impressions: Service Date/Time: Monday, August 07, 2017 11:05 - CONCLUSION: Scan appearance suggests at least a partial closed-loop type small bowel obstruction likely related to adhesions. See above discussion. Dorian Phan MD Cardiovascular: Regular Lungs: Clear Abdomen: Other (mildly distended but improved from yesterday's exam; Minimally tender ) Extremities: No edema A/P Assessment and Plan 71 year old male with SBO likely secondary to adhesions -Will follow up on SBFT results -NGT essentially out--- removed at bedside -Pain control -If needs operative intervention will move patient to [facility] Attending Note - Dr. Jimenez Abdomen soft but minimally distended; nontender The exam, history, and the medical decision-making described in the above note were completed with the assistance of the mid-level provider. I reviewed and agree with the findings presented. I attest that I had a [id number] encounter with the patient on the same day, and personally performed and documented my assessment and findings in the medical record. Yvrose ZaragozaP/First Brigida MCCABEP Aug 09, 2017 11:30 Main Jimenez MD Aug 22, 2017 17:00
[2017-08-09] MEDS: ONDANSETRON HCL 4 MG/2 ML VIAL IVP PRN ×2 (11:46→17:26)
[2017-08-09 11:50] VITALS: BP 145/71; PULSE 71; RESP 20; TEMP 96.8; O2SAT 93
[2017-08-09] MEDS ORDERED: NITROGLYCERIN 2% OINT 1 GM PACKET TOP SCH (14:00)
--- NOTE | 2017-08-09 14:04 | HHI.PR ---
Subjective Remarks Patient seen today in follow-up for small bowel obstruction. Today complaining of 10 out of 10 left-sided chest pain radiating to his left arm. He does have a history of coronary disease has gone off his medications while n.p.o. Says his pain seems to resolve with rest. Patient at this time has been down for his small bowel series but was unable to complete it due to increased nausea. He has increased abdominal distention Objective Vitals Vital Signs Date Time Temp Pulse Resp B/P (MAP) Pulse Ox O2 Delivery O2 Flow Rate FiO2 08/09/17 11:53 18 08/09/17 11:50 96.8 71 20 145/71 (95) 93 08/09/17 07:50 97.1 73 20 171/74 (106) 97 08/09/17 00:00 96.9 84 18 148/78 (101) 98 08/08/17 23:28 18 08/08/17 20:00 98.6 86 18 163/79 (107) 90 08/08/17 16:00 98.0 83 18 138/69 (92) 98 I/O 08/08/17 08/08/17 08/08/17 08/09/17 08/09/17 08/09/17 07:00 15:00 23:00 07:00 15:00 23:00 Intake Total 1492 ml 1000 ml 1000 ml Output Total 800 ml 200 ml 1150 ml Balance 692 ml -200 ml 1000 ml -150 ml Intake Oral 0 ml IV Total 1492 ml 1000 ml 1000 ml Output Urine Total 700 ml 200 ml 850 ml Gastric Drainage Total 100 ml 300 ml # Voids 1 2 # Bowel Movements 0 Result Diagram: 08/08/17 0615 08/08/17 0615 Imaging Last Impressions Abdomen X-Ray 08/08/17 0000 Signed Impressions: Service Date/Time: Tuesday, August 08, 2017 09:27 - CONCLUSION: Plain film findings concerning for partial small bowel obstruction with some air distention of small bowel loops in the left abdomen. Jayjay Thrasher MD Abdomen/Pelvis CT 08/07/17 0940 Signed Impressions: Service Date/Time: Monday, August 07, 2017 11:05 - CONCLUSION: Scan appearance suggests at least a partial closed-loop type small bowel obstruction likely related to adhesions. See above discussion. Dorian Phan MD Objective Remarks GENERAL: This is a well-nourished, well-developed patient, NG tube, complaining of abdominal and chest discomfort CARDIOVASCULAR: Regular rate and rhythm without murmurs, gallops, or rubs. RESPIRATORY: Clear to auscultation. Breath sounds equal bilaterally. No wheezes , rales, or rhonchi. GASTROINTESTINAL: Abdomen soft, tender and moderately distended. Hypoactive bowel sounds MUSCULOSKELETAL: Extremities without clubbing, cyanosis, or edema. NEURO: Alert & Oriented x4 to person, place, time, situation. Moves all ext x4 A/P Problem List: (1) SBO (small bowel obstruction) ICD Code: K56.609 - Unspecified intestinal obstruction, unspecified as to partial versus complete obstruction Plan: Patient with recurrent small bowel obstruction over the last 8 years NGT has been removed Continue with IV fluids, bowel rest/n.p.o. status Pain medication and antiemetics as needed General surgery consult appreciated (2) DM2 (diabetes mellitus, type 2) ICD Code: E11.9 - Type 2 diabetes mellitus without complications (3) CAD (coronary artery disease) ICD Code: I25.10 - Atherosclerotic heart disease of [place] coronary artery without angina pectoris Plan: Today complaining of chest pain Continue home medications adjusted for administration while n.p.o. Cardiology consult pending as patient will likely need this if he indeed will have surgical intervention Troponin/EKG/chest x-ray/symptom management Discharge Planning may need surgical intervention Ann Garcia MD Aug 09, 2017 14:04
--- NOTE | 2017-08-09 14:53 | RADRPT ---
EXAM DATE/TIME: 08/09/2017 14:08 [facility] COMPARISON: No previous studies available for comparison. INDICATIONS : Chest pain MEDICAL HISTORY : Cardiovascular disease. Arthritis. Hypertension.Diabetes,diverticulitis SURGICAL HISTORY : Coronary artery stent. Appendectomy.Colon resection ENCOUNTER: Initial ACUITY: 1 day PAIN SCORE: 10/10 LOCATION: chest FINDINGS: Mild bibasilar infiltrate or atelectasis. Likely small effusions. Cardiac contour is grossly satisfac tory. CONCLUSION: Mild bibasilar pleuroparenchymal opacities, slightly worse on the right than the left. Dorian Phan MD on August 09, 2017 at 14:45 Board Certified Radiologist. This report was verified electronically.
[2017-08-09] MEDS ORDERED: NITROGLYCERIN 0.4 MG SL 25 TABS/BTL SL PRN (15:00)
[2017-08-09 15:26] LABS: TROPONIN I LESS THAN 0.02 NG/ML (0.02-0.05)
[2017-08-09 15:50] VITALS: BP 126/72; PULSE 123; RESP 20; TEMP 98.4; O2SAT 93
[2017-08-09 20:00] VITALS: BP 138/74; PULSE 90; RESP 20; TEMP 97.4; O2SAT 94
[2017-08-09 20:29] LABS: TROPONIN I 0.17 NG/ML (0.02-0.05)
--- NOTE | 2017-08-09 21:00 | RADRPT ---
EXAM DATE/TIME: 08/09/2017 08:33 [facility] COMPARISON: CT ABDOMEN & PELVIS W/O CONTRAST, August 07, 2017, 11:05. INDICATIONS : Obstruction. FLUORO TIME: 0 minutes IMAGE COUNT: 23 CONTRAST: MD Deras IMAGING TIME(S): 15 min, 30 min, 45 min, 1 hr, 1.5 [id number],2.5hrs,5hr, 8hr, 10.5hr MEDICAL HISTORY : Gastroesophageal reflux disease. Diverticulitis. Hypertension. Cardiovascular disease. Arthritis. Diabetes. bowel perforation SURGICAL HISTORY : Appendectomy. Colon resection. Coronary artery stent. Colostomy and reversal ENCOUNTER: Subsequent ACUITY: 3 days PAIN SCORE: 0/10 LOCATION: Bilateral abdomen FINDINGS: The stomach fills normally. There is abnormal dilatation of the proximal and mid small bowel. Contras t becomes progressively diluted over the next 10 hours. At the 10.5 hour film no definite contrast is seen in the cecum. CONCLUSION: 1. Mid to distal small bowel obstruction with dilatation of the proximal and mid small bowel. Bg Huff MD on August 09, 2017 at 20:56 Board Certified Radiologist. This report was verified electronically.
--- NOTE | 2017-08-09 21:46 | MB ---
cc: Leigh Ann Karimi MD DATE: 08/09/2017 Mr. Burdick is a 71-year-old white male with a history of coronary artery disease, coronary stenting, who presented with severe abdominal pain and was diagnosed with a small bowel obstruction. Surgical clearance is requested at this time. The patient had nausea with no vomiting. He has not had any angina. He denies any shortness of breath. He had previous angina with his coronary events in the past. He has not needed to take any nitroglycerin recently. He states he had a [facility] test approximately a [facility], which was unremarkable. PAST MEDICAL HISTORY: Positive for coronary artery disease, myocardial infarction, coronary stenting, hypertension, diabetes mellitus, dyslipidemia, BPH, chronic pain, history of appendectomy, cholecystectomy, coronary stenting placement of 2 stents, history of colectomy for bowel perforation with colostomy which was subsequently reversed. MEDICATIONS: At home include metformin, omeprazole, mirtazapine, metoprolol, prazosin, isosorbide, atorvastatin and cyclobenzaprine. ALLERGIES: INCLUDE IOHEXOL, DIATRIZOATE, GADOBENIC ACID, SHELLFISH. SOCIAL HISTORY: The patient smokes half pack a day. He does not drink alcohol. He is retired from the [employer]. He lives in [place] but travels around frequently. He goes to the [facility]. FAMILY HISTORY: Negative for heart disease. REVIEW OF SYSTEMS: Otherwise negative. PHYSICAL EXAMINATION: VITAL SIGNS: Blood pressure 126/72, pulse 80 and regular. HEENT: The patient has poor dentition. NECK: 2+ carotid upstrokes, no bruits. LUNGS: Clear. HEART: Regular with no murmur, gallop or rub. ABDOMEN: Distended with hypoactive bowel sounds. Minimal tenderness. EXTREMITIES: Without edema. Positive pulses. NEUROLOGIC: Grossly nonfocal. LABORATORY DATA: EKG was reviewed and showed sinus arrhythmia, PAC, left axis, left anterior fascicular block, LVH. Hemoglobin 13.9. Potassium 3.7, creatinine 0.82. Troponin less than 0.02 and 0.17. Troponin CK 72 and 69. AST and ALT normal. DIAGNOSES: 1. Small-bowel obstruction. 2. Coronary artery disease, history of coronary stenting. 3. Mildly elevated troponin. 4. Hypertension. 5. Diabetes mellitus. 6. Dyslipidemia. 7. Smoking. DISPOSITION: Mr. Burdick has had no recent angina. His troponin is slightly elevated. If surgery is necessary, I recommend close monitoring in the perioperative and postoperative period. His risk of cardiac complications is increased given his previous coronary artery disease and history of multiple risk factors. His troponin is mildly elevated and will obtain echocardiogram and adenosine myocardial perfusion study to evaluate for ischemia. Given his troponin elevation, I would recommend transfer to [facility]. Leigh Ann Karimi MD OQ/rt , 09:04 PM , 09:44 PM BUDDY
--- NOTE | 2017-08-09 21:49 | EKG ---
Date Performed: 08/09/2017 Time Performed: 16:16:03 PTAGE: 71 years EKG: Sinus rhythm WITH Premature atrial contractions PATTERN CONSISTENT WITH PULMONARY DISEASE MODERATE VOLTAGE CRITER IA FOR LVH, CONSIDER NORMAL VARIANT ABNORMAL ECG Compared to prior electrocardiogram, Premature atria l contraction are now present . PREVIOUS TRACING : 04/12/2016 19.41 DOCTOR: Washington Jarrett Interpretating Date/Time 08/09/2017 21:48:52
[2017-08-09 22:18] VITALS: PULSE 78
[2017-08-10] VITALS (7 sets, daily range): BP systolic 129–177; BP diastolic 66–87; PULSE 67–97; RESP 17–20; TEMP 96–97.7; O2SAT 91–98
[2017-08-10 02:57] LABS: TROPONIN I 0.15 NG/ML (0.02-0.05)
[2017-08-10] MEDS: PANTOPRAZOLE SODIUM 40 MG VIAL IV PUSH SCH ×2 (05:53→17:37)
[2017-08-10] MEDS: HEPARIN SODIUM - SQ 10,000 UNITS/ML VIAL SQ SCH ×3 (05:53→23:49)
--- NOTE | 2017-08-10 07:46 | EKG ---
Date Performed: 08/09/2017 Time Performed: 22:15:27 PTAGE: 71 years EKG: Sinus rhythm BORDERLINE LEFT AXIS DEVIATION MODERATE VOLTAGE CRITERIA FOR LVH, CONSIDER NORMAL VARIANT NONSPECIFI C ST & T-WAVE ABNORMALITY BORDERLINE ECG Compared to prior electrocardiogram, rate has decreased . PREVIOUS TRACING : 08/09/2017 16.16 DOCTOR: Washington Jarrett Interpretating Date/Time 08/10/2017 07:44:42
--- NOTE | 2017-08-10 07:46 | EKG ---
Date Performed: 08/10/2017 Time Performed: 01:54:40 PTAGE: 71 years EKG: Sinus rhythm MODERATE VOLTAGE CRITERIA FOR LVH, CONSIDER NORMAL VARIANT NONSPECIFIC T-WAVE ABNORMALITY BORDERLINE ECG No significant change from prior electrocardiogram. PREVIOUS TRACING : 08/09/2017 22.15 DOCTOR: Washington Jarrett Interpretating Date/Time 08/10/2017 07:44:07
[2017-08-10] MEDS: INSULIN ASPART SUPPLEMENTAL SCALE SQ SCH ×4 (07:59→21:00)
[2017-08-10] MEDS: SODIUM CHLORIDE 0.9% FLUSH 10 ML FLUSH IV FLUSH SCH ×2 (08:06→23:48)
[2017-08-10] MEDS: NS + KCL 40 MEQ INJ 1,000 ML IV SCH ×2 (09:37→20:00)
--- NOTE | 2017-08-10 09:46 | HHI.PR ---
Subjective Remarks Patient seen today in follow-up for small bowel obstruction. Chest pain has resolved overnight. Abdominal distention improved. Patient is having bowel movements. Was seen by cardiology for chest pain, has been n.p.o. for stress test. Awaiting stress test today. Patient is anxious to attempt p.o. intake. Will try clear liquids after procedure. Spoke with general surgery he wants to follow patient and assess p.o. intake. Objective Vitals Vital Signs Date Time Temp Pulse Resp B/P (MAP) Pulse Ox O2 Delivery O2 Flow Rate FiO2 08/10/17 07:50 97.7 82 20 156/73 (100) 93 08/10/17 00:00 96.0 97 20 129/71 (90) 91 08/09/17 22:18 78 08/09/17 20:00 97.4 90 20 138/74 (95) 94 08/09/17 17:32 18 08/09/17 15:50 98.4 123 20 126/72 (90) 93 08/09/17 11:50 96.8 71 20 145/71 (95) 93 I/O 08/09/17 08/09/17 08/09/17 08/10/17 08/10/17 08/10/17 07:00 15:00 23:00 07:00 15:00 23:00 Intake Total 1000 ml 1483 ml 711 ml 289 ml Output Total 1150 ml 1450 ml Balance -150 ml 33 ml 711 ml 289 ml Intake Oral 0 ml 0 ml IV Total 1000 ml 1483 ml 711 ml 289 ml Output Urine Total 850 ml 250 ml Gastric Drainage Total 300 ml Emesis 1200 ml # Voids 1 3 # Bowel Movements 6 Result Diagram: 08/08/17 0615 08/08/17 0615 Imaging Last Impressions Small Bowel X-Ray 08/09/17 0800 Signed Impressions: Service Date/Time: Wednesday, August 09, 2017 08:33 - CONCLUSION: 1. Mid to distal small bowel obstruction with dilatation of the proximal and mid small bowel. Bg Huff MD Chest X-Ray 08/09/17 0000 Signed Impressions: Service Date/Time: Wednesday, August 09, 2017 14:08 - CONCLUSION: Mild bibasilar pleuroparenchymal opacities, slightly worse on the right than the left. Dorian Phan MD Abdomen X-Ray 08/08/17 0000 Signed Impressions: Service Date/Time: Tuesday, August 08, 2017 09:27 - CONCLUSION: Plain film findings concerning for partial small bowel obstruction with some air distention of small bowel loops in the left abdomen. Jajyay Thrasher MD Abdomen/Pelvis CT 08/07/17 0940 Signed Impressions: Service Date/Time: Monday, August 07, 2017 11:05 - CONCLUSION: Scan appearance suggests at least a partial closed-loop type small bowel obstruction likely related to adhesions. See above discussion. Dorian Phan MD Objective Remarks GENERAL: Well-developed, well-nourished patient in NAD. NG tube has been removed. Abdominal pain resolved. Chest pain resolved. SKIN: Warm and dry. No rash. HEAD: Normocephalic. Atraumatic. EYES: Pupils equal and round. No scleral icterus. No injection or drainage. ENT: No nasal bleeding or discharge. Mucous membranes pink and moist. NECK: Supple. Trachea midline. CARDIOVASCULAR: Regular rate and rhythm. S1, S2 noted. No murmur appreciated. RESPIRATORY: No accessory muscle use. Clear to auscultation. Breath sounds equal bilaterally. GASTROINTESTINAL: Abdomen soft, non-tender, nondistended. Normoactive bowel sounds x4. MUSCULOSKELETAL: No obvious deformities. Extremities without clubbing, cyanosis , or edema. NEUROLOGICAL: Awake and alert. No obvious cranial nerve deficits. Motor grossly within normal limits. 5/5 muscle strength in bilateral upper and lower extremities. Normal speech. A/P Problem List: (1) SBO (small bowel obstruction) ICD Code: K56.609 - Unspecified intestinal obstruction, unspecified as to partial versus complete obstruction Plan: Patient with recurrent small bowel obstruction over the last 8 years NGT has been removed Continue with IV fluids, bowel rest/n.p.o. status for stress test today. Will attempt clear liquids after stress test. Assess response. Pain medication and antiemetics as needed General surgery consult appreciated, small bowel follow-through performed, still wants to follow patient. (2) DM2 (diabetes mellitus, type 2) ICD Code: E11.9 - Type 2 diabetes mellitus without complications Plan: ACCU checks ACHS. Sliding scale insulin as needed, cover as needed. Monitor BS trends. (3) CAD (coronary artery disease) ICD Code: I25.10 - Atherosclerotic heart disease of [place] coronary artery without angina pectoris Plan: Chest pain has now resolved. Seen by cardiology, cardiac stress test ordered and pending today. Follow. Continue home medications adjusted for administration while n.p.o. Mild elevation of troponin. Continue on aspirin. Continue nitroglycerin sublingual as needed for chest pain. Assessment and Plan Cardiac stress test performed and report reviewed. Call placed to Dr. Karimi and updated about results, who reviewed the images. He is not concerned at this time and does not want to do further intervention, will medically manage. Requesting that patient we transferred to the [facility] for observation and if intervention eventually needed. Also spoke with general surgery who is supportive of patient being transferred to the [facility], to assess toleration of PO intake tonight and if needed will undergo surgery tomorrow by general surgery. Will have to follow clinically. Terrie Nunn Aug 10, 2017 09:46
[2017-08-10] MEDS ORDERED: REGADENOSON INJ 0.4 MG/5 ML SYR IV ONE (11:47)
--- NOTE | 2017-08-10 14:50 | RADRPT ---
EXAM DATE/TIME: 08/10/2017 11:04 [place] COMPARISON: No previous studies available for comparison. INDICATIONS : Chest pain Coronary artery disease. DOSE: 25.2 mCi Tc99m Myoview at stress. 8.5 mCi Tc99m Myoview at rest. 0.4 mg Lexiscan STRESS SYMPTOMS: Shortness of breath. EJECTION FRACTION: 63% MEDICAL HISTORY : Gastroesophageal reflux disease. Myocardial infarction. Hypertension. SURGICAL HISTORY : Appendectomy. Coronary artery stent. ENCOUNTER: Initial ACUITY: 3 days PAIN SCALE: 3/10 LOCATION: chest TECHNIQUE: The patient underwent pharmacologic stress with infusion of prescribed dose. Continuous ECG tracing was monitored during stress. Gated SPECT imaging was performed after stress and conventional SPECT i maging was performed at rest. The examination was performed on a SPECT/CT scanner, both attenuation and non-corrected datasets were reviewed. FINDINGS: DISTRIBUTION: The maximum perfused segment at stress is in the lateral wall. PERFUSION STUDY: Decreased perfusion during stress in the mid anterior/anteroseptal jefferson. GATED STUDY: There is intact wall motion and thickening without hypokinetic or dyskinetic segments. CONCLUSION: 1. Ischemia in the mid anterior/anteroseptal jefferson. 2. Intact wall motion with EF of 63%. RISK CATEGORY: Low (<1% Annual Mortality Rate) Joe Sheets MD on August 10, 2017 at 14:46 Board Certified Radiologist. This report was verified electronically.
--- NOTE | 2017-08-10 14:51 | HHI.PR ---
cc: Main Jimenez MD Subjective Subjective Notes Seen about 0730 today Resting in bed Reports multiple BMs overnight; less abdominal pain Going to cardiac stress test today Objective Vitals/I&O Vital Signs Date Time Temp Pulse Resp B/P (MAP) Pulse Ox O2 Delivery O2 Flow Rate FiO2 08/10/17 08:00 92 08/10/17 07:50 97.7 20 156/73 (100) 93 08/08/17 10:00 21 08/08/17 07:30 Nasal Cannula 2.00 Labs Laboratory Tests Test 08/09/17 20:00 08/10/17 02:10 Total Creatine Kinase 69 59 Troponin I 0.17 0.15 Radiology Last 48 hours Impressions Abdomen X-Ray 08/08/17 0000 Signed Impressions: Service Date/Time: Tuesday, August 08, 2017 09:27 - CONCLUSION: Plain film findings concerning for partial small bowel obstruction with some air distention of small bowel loops in the left abdomen. Jayjay Thrasher MD Abdomen/Pelvis CT 08/07/17 0940 Signed Impressions: Service Date/Time: Monday, August 07, 2017 11:05 - CONCLUSION: Scan appearance suggests at least a partial closed-loop type small bowel obstruction likely related to adhesions. See above discussion. Dorian Phan MD Cardiovascular: Regular Lungs: Clear Abdomen: Other (much less distended today on exam than yesterday; less tender ) Extremities: No edema A/P Assessment and Plan 71 year old male with SBO likely secondary to adhesions -Reviewed SBFT -NPO for Cardiac stress test -Okay to start liquids after stress test -Will do PO challenge today -Continue with nonoperative management at this time -Discussed with Terrie ESTRELLA Attending Note - Dr. Jimenez Abdomen soft Stress test shows interventricular ischemia with EF 63% Touched base with Dr. Karimi; may proceed with surgery if needed. The exam, history, and the medical decision-making described in the above note were completed with the assistance of the mid-level provider. I reviewed and agree with the findings presented. I attest that I had a [id number] encounter with the patient on the same day, and personally performed and documented my assessment and findings in the medical record. Yvrose Zaragoza/First Brigida ESTRELLA Aug 10, 2017 14:51 Main Jimenez MD Aug 10, 2017 17:55
--- NOTE | 2017-08-10 15:00 | ECHRPT ---
Indication: cad CONCLUSIONS The left ventricular systolic function is normal with an estimated ejection fraction in the range of 60-65%. Normal left ventricular size. Wall thickness is normal. No regional wall motion abnormalities are present. Trace mitral valve regurgitation. Aortic valve sclerosis is present. There is trace tricuspid valve regurgitation. Trivial pulmonary valve regurgitation. BP: 129 / 71 HR: 90 Rhythm: Sinus MEASUREMENTS (Male / Female) Normal Values Technical Quality:Fair 2D ECHO LV Diastolic Diameter PLAX 5.2 cm 4.2 - 5.9 / 3.9 - 5.3 cm LV Systolic Diameter PLAX 3.8 cm IVS Diastolic Thickness 1.1 cm 0.6 - 1.0 / 0.6 - 0.9 cm LVPW Diastolic Thickness 1.1 cm 0.6 - 1.0 / 0.6 - 0.9 cm LV Relative Wall Thickness 0.4 RV Internal Dim ED PLAX 2.8 cm LVOT Diameter 1.9 cm LA Systolic Diameter LX 3.9 cm 3.0 - 4.0 / 2.7 - 3.8 cm LV Ejection Fraction MOD 4C 59.0 % LV Cardiac Index MOD 4C 2087.6 cm/minm LV Ejection Fraction 4C AL 61.6 % LV Cardiac Index 4C AL 2272.1 cm/minm M-MODE Aortic Root Diameter MM 2.7 cm LA Systolic Diameter MM 3.9 cm LA Ao Ratio MM 1.4 AV Cusp Separation MM 1.6 cm DOPPLER AV Peak Velocity 152.0 cm/s AV Peak Gradient 9.2 mmHg LVOT Peak Velocity 125.0 cm/s LVOT Peak Gradient 6.3 mmHg AV Area Cont Eq pk 2.3 cm MV Area PHT 3.6 cm Mitral E Point Velocity 85.4 cm/s Mitral A Point Velocity 86.9 cm/s Mitral E to A Ratio 1.0 LV E' Lateral Velocity 9.7 cm/s Mitral E to LV E' Lateral Ratio 8.8 LV E' Septal Velocity 8.6 cm/s Mitral E to LV E' Septal Ratio 10.0 TR Peak Velocity 189.0 cm/s TR Peak Gradient 14.3 mmHg Right Atrial Pressure 10.0 mmHg Pulmonary Artery Systolic Pressu 24.3 mmHg Right Ventricular Systolic Press 24.3 mmHg PV Peak Velocity 97.7 cm/s PV Peak Gradient 3.8 mmHg FINDINGS LEFT VENTRICLE The left ventricular systolic function is normal with an estimated ejection fraction in the range of 60-65%. Normal left ventricular size. Wall thickness is normal. No regional wall motion abnormalities are present. RIGHT VENTRICLE Normal right ventricular size and systolic function. LEFT ATRIUM The left atrial size is normal. RIGHT ATRIUM The right atrial size is normal. ATRIAL SEPTUM Normal atrial septal thickness without atrial level shunting by limited color doppler interrogation. AORTA The aortic root and proximal ascending aorta are normal in size on limited imaging. MITRAL VALVE Structurally normal mitral valve. Trace mitral valve regurgitation. AORTIC VALVE Trileaflet aortic valve. Aortic valve sclerosis is present. TRICUSPID VALVE Structurally normal tricuspid valve. There is trace tricuspid valve regurgitation. PULMONARY VALVE Trivial pulmonary valve regurgitation. VESSELS The inferior vena cava is normal in size. PERICARDIUM No pericardial effusion. Jon Davenport MD, FACC, FSCAI (Electronically Signed) Final Date:10 August 2017 14:59
[2017-08-11] VITALS (7 sets, daily range): BP systolic 157–175; BP diastolic 75–83; PULSE 64–75; RESP 17–18; TEMP 97–98.4; O2SAT 97–99
[2017-08-11] MEDS: NS + KCL 40 MEQ INJ 1,000 ML IV SCH ×3 (06:00→22:04)
[2017-08-11] MEDS: HEPARIN SODIUM - SQ 10,000 UNITS/ML VIAL SQ SCH ×3 (06:41→22:04)
[2017-08-11] MEDS: PANTOPRAZOLE SODIUM 40 MG VIAL IV PUSH SCH ×2 (06:42→14:54)
[2017-08-11] MEDS: ASPIRIN 325 MG TAB PO SCH (07:49)
[2017-08-11] MEDS: INSULIN ASPART SUPPLEMENTAL SCALE SQ SCH ×4 (07:49→21:00)
[2017-08-11] MEDS: SODIUM CHLORIDE 0.9% FLUSH 10 ML FLUSH IV FLUSH SCH ×2 (07:50→21:00)
--- NOTE | 2017-08-11 11:48 | HHI.PR ---
Subjective Remarks Follow-up for small bowel obstruction Patient found thing in the room talking the phone. He stated he had no concerns. Denies any chest pain, shortness of breathing, palpitation, light his dizziness. Denies any abdominal pain. Patient stated that he is tolerating his diet. He stated that he is producing gas and has good bowel movements. Patient said he is ready to go home today. Objective Vitals Vital Signs Date Time Temp Pulse Resp B/P (MAP) Pulse Ox O2 Delivery O2 Flow Rate FiO2 08/11/17 11:29 97.6 65 18 175/83 (113) 98 08/11/17 08:00 97.0 64 18 159/75 (103) 99 08/11/17 04:20 97.8 70 17 157/80 (105) 97 08/10/17 23:55 97.7 72 17 151/85 (107) 95 08/10/17 21:15 96.9 67 17 176/80 (112) 98 08/10/17 15:50 96.2 85 20 177/87 (117) 98 08/10/17 11:50 96.2 90 20 142/66 (91) 96 I/O 08/10/17 08/10/17 08/10/17 08/11/17 08/11/17 08/11/17 07:00 15:00 23:00 07:00 15:00 23:00 Intake Total 711 ml 289 ml 893 ml 360 ml Output Total 150 ml Balance 711 ml 289 ml 743 ml 360 ml Intake Oral 0 ml 360 ml 360 ml IV Total 711 ml 289 ml 533 ml Output Urine Total 150 ml # Voids 3 5 2 # Bowel Movements 6 5 0 Result Diagram: 08/08/1715 08/08/17 0615 Imaging Last Impressions Myocardial Perfusion Scan Nuc Med 08/10/17 08 Signed Impressions: Service Date/Time: July 11:04 - CONCLUSION: 1. Ischemia in the mid anterior/anteroseptal jeff[place]. 2. Intact wall motion with EF of 63%%. RISK CATEGORY: Low (<1%% Annual Mortality Rate) Joe Sheets MD Small Bowel X-Ray 08/09/17 08 Signed Impressions: Service Date/Time: Wednesday, August 09, 2017 08:33 - CONCLUSION: 1. Mid to distal small bowel obstruction with dilatation of the proximal and mid small bowel. Bg Huff MD Chest X-Ray 08/09/17 0000 Signed Impressions: Service Date/Time: Wednesday, August 09, 2017 14:08 - CONCLUSION: Mild bibasilar pleuroparenchymal opacities, slightly worse on the right than the left. Dorian Phan MD Abdomen X-Ray 08/08/17 0000 Signed Impressions: Service Date/Time: Tuesday, August 08, 2017 09:27 - CONCLUSION: Plain film findings concerning for partial small bowel obstruction with some air distention of small bowel loops in the left abdomen. Jayjay Thrasher MD Abdomen/Pelvis CT 08/07/17 0940 Signed Impressions: Service Date/Time: Monday, August 07, 2017 11:05 - CONCLUSION: Scan appearance suggests at least a partial closed-loop type small bowel obstruction likely related to adhesions. See above discussion. Dorian Phan MD Objective Remarks GENERAL: in nad CARDIOVASCULAR: Regular rate and rhythm without murmurs, gallops, or rubs. RESPIRATORY: Breath sounds equal bilaterally. No accessory muscle use. GASTROINTESTINAL: Abdomen soft, non-tender, nondistended. MUSCULOSKELETAL: No cyanosis, or edema. BACK: Nontender without obvious deformity. No CVA tenderness. Medications and IVs Current Medications Sodium Chloride 1,000 ml @ 100 mls/hr Q10H IV Last administered on 08/07/17 09:17; Start 08/07/17 at 09:15; Stop 08/07/17 at 12:48; Status DC Ondansetron HCl (Zofran Inj) 4 mg ONCE ONCE IV PUSH Last administered on at 09:17; Start 08/07/17 at 09:15; Stop 08/07/17 at 09:16; Status DC Hydromorphone HCl (Dilaudid Pf Inj) 0.5 mg ONCE ONCE IV PUSH Last administered on 08/07/17 09:17; Start 08/07/17 at 09:15; Stop 08/07/17 at 09:16 ; Status DC Hydromorphone HCl (Dilaudid Pf Inj) 2 mg ONCE ONCE IV PUSH Last administered on 08/07/17at 12:02; Start 08/07/17 at 12:00; Stop 08/07/17 at 12:01; Status DC Ondansetron HCl (Zofran Inj) 1 mg ONCE ONCE IV PUSH Last administered on 12:02; Start 08/07/17 at 12:00; Stop 08/07/17 at 12:01; Status DC Potassium Chloride/Sodium Chloride 1,000 ml @ 100 mls/hr Q10H IV Last administered on 08/10/17at 09:37; Start 08/07/17 at 12:00 Sodium Chloride 1,000 ml @ 100 mls/hr Q10H IV Last administered on 08/09/17at 04:21; Start 08/07/17 at 12:26; Stop 08/09/17 at 13:55; Status DC Sodium Chloride (NS Flush) 2 ml UNSCH PRN IV FLUSH FLUSH AFTER USING IV ACCESS Last administered on 08/08/17 06:00; Start 08/07/17 at 12:30 Sodium Chloride (NS Flush) 2 ml BID IV FLUSH Last administered on 08/11/17at 07: 50; Start 08/07/17 at 21:00 Ondansetron HCl (Zofran Inj) 4 mg Q6H PRN IVP NAUSEA OR VOMITING Last administered on 08/09/17 17:26; Start 08/07/17 at 12:30 Naloxone HCl (Narcan Inj) 0.4 mg UNSCH PRN IV PUSH SEE LABEL COMMENTS; Start at 12:30 Ketorolac Tromethamine (Toradol Inj) 15 mg Q6H PRN IM pain Last administered on 08/08/17 04:08; Start 08/07/17 at 12:30; Stop 08/08/17 at 11:26; Status DC Heparin Sodium (Porcine) (Heparin Inj) 5,000 units Q8HR SQ Last administered on 08/11/17 06:41; Start 08/07/17 at 22:00 Pantoprazole Sodium (Protonix Inj) 40 mg Q12H IV PUSH Last administered on 08/11 06:42; Start 08/07/17 at 18:00 Dextrose (D50w (Vial) Inj) 50 ml UNSCH PRN IV PUSH HYPOGLYCEMIA-SEE COMMENTS; Start 08/07/17 at 16:15 Glucagon (Glucagon Inj) 1 mg UNSCH PRN OTHER HYPOGLYCEMIA-SEE COMMENTS; Start 08/07/17 at 16:15 Insulin Aspart (NovoLOG SUPPLEMENTAL SCALE) 1 ACHS SLIDING SCALE SQ ; Start at 17:00 Morphine Sulfate (Morphine Inj) 2 mg Q3H PRN IV PUSH breakthorugh pain Last administered on 08/09/17at 22:38; Start 08/08/17 at 01:30 Lorazepam (Ativan Inj) 1 mg ONCE ONCE IV PUSH Last administered on 08/08/17at 12:01; Start 08/08/17 at 11:30; Stop 08/08/17 at 11:35; Status DC Ketorolac Tromethamine (Toradol Inj) 15 mg Q6H PRN IM pain Last administered on 08/08/17at 22:28; Start 08/08/17 at 12:00; Stop 08/13/17 at 11:59 Diatrizoate Meglum/ Diatrizoate Sod ( Gastroview Liq) 240 ml STK-MED ONCE PO Last administered on 08/09/17at 08:55; Start 08/09/17 at 08:55; Stop 08/09/17 at 09:11; Status DC Aspirin (Aspirin) 325 mg DAILY PO Last administered on 08/11/17at 07:49; Start 08/11/17 at 09:00 Nitroglycerin (Nitroglycerin 2% Oint) 1 inch NOW TOP Last administered on at 14:32; Start 08/09/17 at 14:00; Stop 08/10/17 at 13:59; Status DC Nitroglycerin (Nitrostat Sl) 0.4 mg Q5M PRN SL X 3 doses for chest pain; Start 08/09/17 at 15:00 Regadenoson (Lexiscan Inj) 0.4 mg STK-MED ONCE IV Last administered on at 11:47; Start 08/10/17 at 11:47; Stop 08/10/17 at 11:48; Status DC A/P Problem List: (1) SBO (small bowel obstruction) ICD Code: K56.609 - Unspecified intestinal obstruction, unspecified as to partial versus complete obstruction (2) DM2 (diabetes mellitus, type 2) ICD Code: E11.9 - Type 2 diabetes mellitus without complications (3) CAD (coronary artery disease) ICD Code: I25.10 - Atherosclerotic heart disease of [place] coronary artery without angina pectoris Assessment and Plan This is a 71-year-old male present nausea vomiting SBO (small bowel obstruction) -General surgeon consulted and recommended medical management. -Diet to be advanced by general surgeon. -Continue with IV fluids. Management per general surgeon. DM2 (diabetes mellitus, type 2) -Type 2 diabetes mellitus without complications -ACCU checks ACHS. Sliding scale insulin as needed, cover as needed. Monitor BS trends. CAD (coronary artery disease) -Atherosclerotic heart disease of [place] coronary artery without angina pectoris -Kaiako Kohanga Reo consulted following. -Asymptomatic. Nuclear stress test showed shows ischemia in the mid septal and anterior septal wall. Otherwise EF 63%. -Continue on aspirin. Continue nitroglycerin sublingual as needed for chest pain. Discharge Planning Once cleared by ticketing agent and general surgeon patient can be discharged home. Ebony Russell MD Aug 11, 2017 11:48
--- NOTE | 2017-08-11 17:05 | PD.CARD.PN ---
Subjective Subjective Remarks No angina or CHF, abdominal pain improved Objective Medications Current Medications Medications (Trade) Dose Ordered Sig/Larry Route Start Time Stop Time Status Last Admin Potassium Chloride/Sodium Chloride 1,000 ml @ 100 mls/hr Q10H IV 08/07/17 12:00 08/10/17 09:37 (NS Flush) 2 ml UNSCH PRN IV FLUSH 08/07/17 12:30 08/08/17 06:00 (NS Flush) 2 ml BID IV FLUSH 08/07/17 21:00 08/11/17 07:50 (Zofran Inj) 4 mg Q6H PRN IVP 08/07/17 12:30 08/09/17 17:26 (Narcan Inj) 0.4 mg UNSCH PRN IV PUSH 08/07/17 12:30 (Heparin Inj) 5,000 units Q8HR SQ 08/07/17 22:00 08/11/17 14:53 (Protonix Inj) 40 mg Q12H IV PUSH 08/07/17 18:00 08/11/17 14:54 (D50w (Vial) Inj) 50 ml UNSCH PRN IV PUSH 08/07/17 16:15 (Glucagon Inj) 1 mg UNSCH PRN OTHER 08/07/17 16:15 (NovoLOG SUPPLEMENTAL SCALE) 1 ACHS SLIDING SCALE SQ 08/07/17 17:00 (Morphine Inj) 2 mg Q3H PRN IV PUSH 08/08/17 01:30 08/09/17 22:38 (Toradol Inj) 15 mg Q6H PRN IM 08/08/17 12:00 08/13/17 11:59 08/08/17 22:28 (Aspirin) 325 mg DAILY PO 08/11/17 09:00 08/11/17 07:49 (Nitrostat Sl) 0.4 mg Q5M PRN SL 08/09/17 15:00 Vital Signs / I&O Vital Signs Date Time Temp Pulse Resp B/P (MAP) Pulse Ox O2 Delivery O2 Flow Rate FiO2 08/11/17 16:00 98.0 69 18 163/77 (105) 99 08/11/17 11:29 97.6 65 18 175/83 (113) 98 08/11/17 08:15 75 08/11/17 08:00 97.0 64 18 159/75 (103) 99 08/11/17 04:20 97.8 70 17 157/80 (105) 97 08/10/17 23:55 97.7 72 17 151/85 (107) 95 08/10/17 21:15 96.9 67 17 176/80 (112) 98 I/O 08/10/17 08/10/17 08/10/17 08/11/17 08/11/17 08/11/17 07:00 15:00 23:00 07:00 15:00 23:00 Intake Total 711 ml 289 ml 893 ml 360 ml 1200 ml Output Total 150 ml Balance 711 ml 289 ml 743 ml 360 ml 1200 ml Intake Oral 0 ml 360 ml 360 ml 1200 ml IV Total 711 ml 289 ml 533 ml Output Urine Total 150 ml # Voids 3 5 2 3 # Bowel Movements 6 5 0 1 Physical Exam GENERAL: In NAD. SKIN: Warm and dry. HEAD: Normocephalic. EYES: No scleral icterus. No injection or drainage. NECK: Supple, trachea midline. No JVD or lymphadenopathy. CARDIOVASCULAR: Regular rate and rhythm without murmurs, gallops, or rubs. RESPIRATORY: Breath sounds equal bilaterally. No accessory muscle use. GASTROINTESTINAL: Abdomen soft, non-tender, nondistended. MUSCULOSKELETAL: No cyanosis, or edema. Assessment and Plan Problem List: (1) SBO (small bowel obstruction) ICD Codes: K56.609 - Unspecified intestinal obstruction, unspecified as to partial versus complete obstruction (2) CAD (coronary artery disease) ICD Codes: I25.10 - Atherosclerotic heart disease of [place] coronary artery without angina pectoris (3) DM2 (diabetes mellitus, type 2) ICD Codes: E11.9 - Type 2 diabetes mellitus without complications Assessment and Plan No angina or CHF. Echo with nl LV systolic fx. Nuclear ST low risk. Pt cleared for surgery if necessary. SBO improving. Leigh Ann Karimi MD Aug 11, 2017 17:05
--- NOTE | 2017-08-11 18:42 | HHI.PR ---
cc: Main Jimenez MD Subjective Subjective Notes Walking in the hallways No issues Tolerating full liquids Objective Vitals/I&O Vital Signs Date Time Temp Pulse Resp B/P (MAP) Pulse Ox O2 Delivery O2 Flow Rate FiO2 08/11/17 16:00 98.0 69 18 163/77 (105) 99 08/08/17 10:00 21 08/08/17 07:30 Nasal Cannula 2.00 Radiology Last 48 hours Impressions Abdomen X-Ray 08/08/17 0000 Signed Impressions: Service Date/Time: Tuesday, August 08, 2017 09:27 - CONCLUSION: Plain film findings concerning for partial small bowel obstruction with some air distention of small bowel loops in the left abdomen. Jayjay Thrasher MD Abdomen/Pelvis CT 08/07/17 0940 Signed Impressions: Service Date/Time: Monday, August 07, 2017 11:05 - CONCLUSION: Scan appearance suggests at least a partial closed-loop type small bowel obstruction likely related to adhesions. See above discussion. Dorian Phan MD Cardiovascular: Regular Lungs: Clear Abdomen: Non-distended, Non-tender Extremities: No edema A/P Assessment and Plan 71 year old male with SBO likely secondary to adhesions -Reviewed SBFT -Advance to regular diet -If tolerates regular diet--- plan to DC after breakfast Monday AM Attending Note - Dr. Jimenez Abdomen soft, benign Advance diet The exam, history, and the medical decision-making described in the above note were completed with the assistance of the mid-level provider. I reviewed and agree with the findings presented. I attest that I had a [id number] encounter with the patient on the same day, and personally performed and documented my assessment and findings in the medical record. Yvrose Zaragoza PUBLIC RELATIONS PLAYER/[employer] PUBLIC RELATIONS PLAYER Aug 11, 2017 18:42 Main Jimenez MD Aug 22, 2017 16:53
[2017-08-12] MEDS: HEPARIN SODIUM - SQ 10,000 UNITS/ML VIAL SQ SCH (07:40)
[2017-08-12] MEDS: PANTOPRAZOLE SODIUM 40 MG VIAL IV PUSH SCH (07:41)
[2017-08-12 08:00] VITALS: BP 131/74; PULSE 71; RESP 17; TEMP 98.3; O2SAT 98
[2017-08-12] MEDS: ASPIRIN 325 MG TAB PO SCH (08:40)
[2017-08-12] MEDS: INSULIN ASPART SUPPLEMENTAL SCALE SQ SCH (08:42)
[2017-08-12] MEDS: SODIUM CHLORIDE 0.9% FLUSH 10 ML FLUSH IV FLUSH SCH (08:42)
[2017-08-12] MEDS ORDERED: ASPI81TA23 PO (10:52)
--- NOTE | 2017-08-12 10:53 | HHI.DCPOC ---
Discharge Care Plan Diagnosis: (1) SBO (small bowel obstruction) (2) CAD (coronary artery disease) (3) DM2 (diabetes mellitus, type 2) Goals to Promote Your Health * To prevent worsening of your condition and complications * To maintain your health at the optimal level Directions to Meet Your Goals Take your medications as prescribed Follow your dietary instruction Follow activity as directed Keep your appointments as scheduled Take your immunizations and boosters as scheduled If your symptoms worsen call your PCP, if no PCP go to Urgent Care Center or Emergency Room Smoking is Dangerous to Your Health. Avoid second hand smoke Call the 24-hour hour crisis hotline for domestic abuse at Ebony Russell MD Aug 12, 2017 10:53
--- NOTE | 2017-08-12 10:53 | HHI.DS ---
Discharge Summary Admission Date Aug 07, 2017 at 12:27 Discharge Date: Aug 12, 2017 Admitting Diagnosis SMALL BOWEL OBSTRUCTION (1) SBO (small bowel obstruction) ICD Code: K56.609 - Unspecified intestinal obstruction, unspecified as to partial versus complete obstruction Diagnosis: Principal (2) DM2 (diabetes mellitus, type 2) ICD Code: E11.9 - Type 2 diabetes mellitus without complications Diagnosis: Secondary (3) CAD (coronary artery disease) ICD Code: I25.10 - Atherosclerotic heart disease of [place] coronary artery without angina pectoris Diagnosis: Secondary Procedures See hospital course Brief History - From Admission This patient is a very pleasant 71-year-old gentleman with a history of multiple intestinal surgeries who came to the hospital and body of acute onset of severe abdominal pain which was previously experienced during a diagnosis of bowel obstruction. He has some nausea with no kendall vomiting. He says for the last 18 years he has had intermittent abdominal discomfort. 18 years ago he had perforated intestinal and that with colectomy and colostomy which has since been reversed. He reports no change in bowel habits or no change in diet prior to the acute change in pain. Pain has been relieved with IV of the abdomen which does show partial bowel obstruction CBC/BMP: 08/08/17 0615 08/08/17 0615 Significant Findings Laboratory Tests Test 08/09/17 14:45 08/09/17 20:00 08/10/17 02:10 Troponin I LESS THAN 0.02 NG/ML 0.17 NG/ML (0.02-0.05) 0.15 NG/ML (0.02-0.05) Imaging Last Impressions Myocardial Perfusion Scan Nuc Med 08/10/17 08 Signed Impressions: Service Date/Time: July 11:04 - CONCLUSION: 1. Ischemia in the mid anterior/anteroseptal jefferson. 2. Intact wall motion with EF of 63%%. RISK CATEGORY: Low (<1%% Annual Mortality Rate) Joe Sheets MD Small Bowel X-Ray 08/09/17 08 Signed Impressions: Service Date/Time: Wednesday, August 09, 2017 08:33 - CONCLUSION: 1. Mid to distal small bowel obstruction with dilatation of the proximal and mid small bowel. Bg Huff MD Chest X-Ray 08/09/17 0000 Signed Impressions: Service Date/Time: Wednesday, August 09, 2017 14:08 - CONCLUSION: Mild bibasilar pleuroparenchymal opacities, slightly worse on the right than the left. Dorian Phan MD Abdomen X-Ray 08/08/17 0000 Signed Impressions: Service Date/Time: Tuesday, August 08, 2017 09:27 - CONCLUSION: Plain film findings concerning for partial small bowel obstruction with some air distention of small bowel loops in the left abdomen. Jayjay Thrasher MD Abdomen/Pelvis CT 08/07/17 0940 Signed Impressions: Service Date/Time: Monday, August 07, 2017 11:05 - CONCLUSION: Scan appearance suggests at least a partial closed-loop type small bowel obstruction likely related to adhesions. See above discussion. Dorian Phan MD PE at Discharge GENERAL: in nad CARDIOVASCULAR: Regular rate and rhythm without murmurs, gallops, or rubs. RESPIRATORY: Breath sounds equal bilaterally. No accessory muscle use. GASTROINTESTINAL: Abdomen soft, non-tender, nondistended. MUSCULOSKELETAL: No cyanosis, or edema. BACK: Nontender without obvious deformity. No CVA tenderness. Pt update on day of discharge Follow-up for small bowel obstruction Patient seen after breakfast walking around the hallways. He had no complaints. He stated that he is doing very well. Denies any nausea, vomiting , or abdominal pain. Patient very anxious to go home. He had no other complaints. Hospital Course This is a 71-year-old male present nausea vomiting SBO (small bowel obstruction) -General surgeon consulted and recommended medical management. -Initially patient had NG tube placement that was removed and his diet was advanced as tolerated. He did well during the hospital course and was able to tolerate a regular diet by the time of discharge. DM2 (diabetes mellitus, type 2) -Type 2 diabetes mellitus without complications -ACCU checks ACHS. Sliding scale insulin as needed, cover as needed. Monitor BS trends. CAD (coronary artery disease) -Atherosclerotic heart disease of [place] coronary artery without angina pectoris -Certified Welder consulted following. -Asymptomatic. Nuclear stress test showed shows ischemia in the mid septal and anterior septal wall. Otherwise EF 63%. -Certified Welder consulted. Stated per nuclear stress test and clinically most likely there is no acute coronary syndrome. -Continue on aspirin and home medication. Otherwise patient was cleared by level vial setter. Pt Condition on Discharge: Good Discharge Disposition: Discharge Home Discharge Time: <= 30 minutes Discharge Instructions DIET: Follow Instructions for: Heart Healthy Diet, Diabetic Diet Activities you can perform: Regular-No Restrictions Follow up Referrals: PCP Follow-up - 1 Week New Medications: Aspirin DR (Aspirin EC) 81 Mg Tabdr 81 MG PO DAILY for heart disease, #30 TAB 0 Refills Continued Medications: Atorvastatin (Atorvastatin) 20 Mg Tab 20 MG PO HS for Cholesterol Management, #30 TAB 0 Refills Cyclobenzaprine (Flexeril) 5 Mg Tab 5 MG PO BID for Muscle Spasm, #90 TAB 0 Refills Isosorbide Mononitrate (Isosorbide Mononitrate) 10 Mg Tab 30 MG PO DAILY for Prevent Chest Pain, #60 TAB Take 2 doses 7 hours apart. Metformin (Metformin) 500 Mg Tab 500 MG PO BIDPC for Blood Sugar Management, #60 TAB 0 Refills With meals Metoprolol Tartrate (Metoprolol Tartrate) 25 Mg Tab 25 MG PO BID, #60 TAB 0 Refills Mirtazapine (Mirtazapine) 30 Mg Tab 30 MG PO HS PRN for INSOMNIA, #30 TAB 0 Refills Omeprazole (Omeprazole) 20 Mg Tab 20 MG PO DAILY, #30 TAB 0 Refills Prazosin (Prazosin) 5 Mg Cap 10 MG PO HS for Blood Pressure Management, #60 CAP 0 Refills Ebony Russell MD Aug 12, 2017 10:53
== END 2017-08-12 12:08 | disposition home or self-care (01) | DRG 390 ==
LOC: PHED 08:52 → PHEDA 12:27 → PH3A 13:59 → N06B 08-10 21:12
PROVIDERS: ADMIT Family Medicine; ATTEND Family Medicine
DX: K56.50 Intestinal adhesions [bands], unspecified as to partial versus complete obstruction (principal); E11.9 Type 2 diabetes mellitus without complications; I10 Essential (primary) hypertension; I25.10 Atherosclerotic heart disease of native coronary artery without angina pectoris; E78.5 Hyperlipidemia, unspecified; K21.9 Gastro-esophageal reflux disease without esophagitis; R07.9 Chest pain, unspecified; G47.00 Insomnia, unspecified; I25.2 Old myocardial infarction; R74.8 Abnormal levels of other serum enzymes; M19.90 Unspecified osteoarthritis, unspecified site; N40.0 Benign prostatic hyperplasia without lower urinary tract symptoms; F17.210 Nicotine dependence, cigarettes, uncomplicated; F32.9 Major depressive disorder, single episode, unspecified; F41.9 Anxiety disorder, unspecified; F43.10 Post-traumatic stress disorder, unspecified; Z79.84 Long term (current) use of oral hypoglycemic drugs; Z85.828 Personal history of other malignant neoplasm of skin; Z90.49 Acquired absence of other specified parts of digestive tract; Z91.013 Allergy to seafood; Z95.5 Presence of coronary angioplasty implant and graft
CPT/HCPCS: 71045; 74018; 74176; 74250; 78452; 80048; 80053; 82550; 82948; 83690; 84484; 85025; 85610; 85730; 93005; 93017; 93306; 96361; 96374; 96375; 96376; A9502; C9113; J1170; J1644; J1885; J2060; J2270; J2405; J2785; J3480; J7030; Q9963